=== PATIENT | female | born 1985 | race Caucasian/White ===

== ENCOUNTER 2016-09-01 10:09 | Emergency (ER) | payer OTHER ==
--- NOTE | 2016-09-01 10:33 | ED ---
Abdominal Pain HPI - General Chief Complaint: Abdominal Pain Stated Complaint: AND CRAMPING Time Seen by Provider: 09/01/16 10:17 Source: patient Mode of arrival: ambulatory Limitations: no limitations - History of Present Illness Initial Comments: This 30-year-old white female presents with a complaint of some right lower quadrant abdominal pain. She relates that this came on yesterday. She took a home test approximately one week ago and it was positive. She is unsure how she would be as she has had very irregular periods. She has had some associated nausea recently but she normally gets this when she is . She does not take any medications for this. She denies any vomiting , fever, chills, diarrhea, or constipation. She's had some mild urinary frequency but denies any dysuria or urgency or hematuria. She does have a history of a cholecystectomy but states that her appendix is still present. She also has a history of previous ectopic treated with methotrexate. She has a history of significant ovarian cysts and states that one was very large this past year and cause detorsion for which she required emergent surgery. She denies any other complaints or modifying factors. She denies any vaginal bleeding or discharge. - Related Data Home Medications Medication Instructions Recorded Confirmed Pnv with Ca,No.72/Iron/FA 1 tab PO HS 09/01/16 09/01/16 [ Plus Tablet] Allergies Allergy/AdvReac Type Severity Reaction Status Date / Time metoclopramide HCl Allergy Confusion Verified 09/01/16 11:26 [From [facility]] Review of Systems ROS Statement: Those systems with pertinent positive or pertinent negative responses have been documented in the HPI. ROS Other: All systems not noted in ROS Statement are negative. Past Medical History Additional Past Medical History / Comment(s): OB history: 4 previous vaginal deliveries and one ectopic treated with methotrexate. History of Any Multi-Drug Resistant Organisms: None Reported Past Surgical History: Cholecystectomy Past Anesthesia/Blood Transfusion Reactions: No Reported Reaction Past Psychological History: Anxiety Smoking Status: Current every day smoker Past Alcohol Use History: None Reported Past Drug Use History: None Reported - Past Family History Father Family Medical History: No Reported History Additional Family Medical History / Comment(s): grandmother diabetic General Exam - General Exam Comments Initial Comments: GENERAL: The patient is well nourished and well hydrated. VITAL SIGNS: Heart rate, blood pressure, respiratory rate reviewed as recorded in nurse's notes. EYES: Pupils are round and reactive. Extraocular movements are intact. No conjunctival / lid redness or swelling. ENT: No external evidence of injury, swelling, or ecchymosis. Airway is patent. Throat is clear. NECK: Nontender. No swelling or evidence of injury. No subcutaneous emphysema. Trachea is midline. No thyroid mass. HEART: Regular rate and rhythm. Good peripheral pulses. LUNGS/CHEST: Breath sounds clear and equal bilaterally. No rales, rhonchi, or wheezes. No ecchymosis, subcutaneous emphysema, or tenderness. ABDOMEN: There is mild tenderness upon palpation of the right lower quadrant. There is no peritoneal signs. No palpable masses or organomegaly. No peritoneal signs. No abdominal wall swelling or ecchymosis. EXTREMITIES: No extremity tenderness. Normal muscle tone and function. No thoracolumbar tenderness. NEUROLOGIC: Sensation is grossly intact. Cranial nerve exam reveals face is symmetrical, tongue is midline, speech is clear. SKIN: No abrasions or ecchymosis is noted. No induration or masses noted. PSYCHIATRIC: Alert and oriented. Appropriate behavior and judgment. Limitations: no limitations Course Vital Signs 09/01/16 10:10 Temperature 98.5 F Pulse Rate 91 Respiratory 17 Rate Blood Pressure 137/81 O2 Sat by Pulse 100 Oximetry Medical Decision Making - Medical Decision Making The patient was seen and examined. All diagnostics were reviewed. The ultrasound showed a 15 week 1 day intrauterine . There are multiple bilateral ovarian cyst. The largest one on the right side is 2.5 cm in the largest one on the left side is 7 cm. She does relate a significant history of ovarian cysts. She apparently had a 13 cm cyst on the left side previously. She has not had any care thus far. She is in the process of moving to the [facility] and was thinking of establishing with an OB in that area but may stay with her current OB, Dr. Younger. It is not felt as though she has appendicitis but return parameters are discussed in this regard. It is felt that she should have close follow-up with her CHERRY PITTER for both care and further evaluation of this significant left sided ovarian cyst, especially in light of her history of torsion. Her urine and CBC came back normal. It is felt as though she is stable for discharge and leaves in no identifiable distress. She is instructed that she may utilize Tylenol if needed for pain. - Lab Data Result diagrams: 09/01/16 10:37 Lab Results 09/01/16 09/01/16 Range/Units 10:15 10:37 WBC 9.4 (3.8-10.6) k/uL RBC 4.14 (3.80-5.40) m/uL Hgb 12.8 (11.4-16.0) gm/dL Hct 38.6 (34.0-46.0) % MCV 93.3 (80.0-100.0) fL MCH 31.0 (25.0-35.0) pg MCHC 33.2 (31.0-37.0) g/dL RDW 14.2 (11.5-15.5) % Plt Count 226 (150-450) k/uL Neutrophils % 72 % Lymphocytes % 21 % Monocytes % 4 % Eosinophils % 2 % Basophils % 1 % Neutrophils # 6.8 (1.3-7.7) k/uL Lymphocytes # 1.9 (1.0-4.8) k/uL Monocytes # 0.4 (0-1.0) k/uL Eosinophils # 0.2 (0-0.7) k/uL Basophils # 0.0 (0-0.2) k/uL Urine Color Yellow Urine Appearance Clear (Clear) Urine pH 8.0 (5.0-8.0) Ur Specific [place] 1.009 (1.001-1.035) Urine Protein Negative (Negative) Urine Glucose (UA) Negative (Negative) Urine Ketones Negative (Negative) Urine Blood Negative (Negative) Urine Nitrite Negative (Negative) Urine Bilirubin Negative (Negative) Urine Urobilinogen <2.0 (<2.0) mg/dL Ur Leukocyte Esterase Negative (Negative) Disposition Clinical Impression: Pelvic pain, Ovarian cyst, Intrauterine Disposition: HOME SELF-CARE Condition: Good Instructions: (ED), Pelvic Pain in Women (ED), Ovarian Cyst (ED) Referrals: None,Stated [Primary Care Provider] - 1-2 days Marquis Britt DO [Doctor of Osteopathic Medicine] - 09/03/16 Time of Disposition: 12:01
[2016-09-01 10:47] LABS: Basophils % (A) 1 %; CH 31.4; CHCM 33.9; Eosinophils # (A) 0.2 k/uL (0-0.7); Eosinophils % (A) 2 %; HCT 38.6 % (34.0-46.0); HDW 2.27; HGB 12.8 gm/dL (11.4-16.0); Luc % (Auto) 1; Lymphocytes # (A) 1.9 k/uL (1.0-4.8); Lymphocytes % (A) 21 %; MCHC 33.2 g/dL (31.0-37.0); MCV 93.3 fL (80.0-100.0); Monocytes # (A) 0.4 k/uL (0-1.0); Monocytes % (A) 4 %; Neutrophils # (A) 6.8 k/uL (1.3-7.7); Neutrophils % (A) 72 %; RBC 4.14 m/uL (3.80-5.40); RDW 14.2 % (11.5-15.5); WBC 9.4 k/uL (3.8-10.6); WBC (Perox) 9.92
[2016-09-01 10:47] LABS: Appearance,Urine Clear (Clear); Bilirubin,Urine Negative (Negative); Glucose,Urine (UA) Negative (Negative); Ketones,Urine Negative (Negative); Leukocyte Esterase,Urine Negative (Negative); Nitrite,Urine Negative (Negative); Protein,Urine Negative (Negative); Specific Gravity,Urine 1.009 (1.001-1.035); UA Billing (MACRO vs. MICRO) CHEM; Urobilinogen,Urine <2.0 mg/dL (<2.0)
--- NOTE | 2016-09-01 11:34 | US ---
EXAMINATION TYPE: US OB >= 14 wk fetus DATE OF EXAM: 09/01/2016 11:09 AM COMPARISON: No previous CLINICAL HISTORY: Right pelvic pain, history of ovarian cysts, LMP unknown, 6, para 4, ectopi c 1 TECHNIQUE: Transabdominal (TA) GESTATIONAL AGE / DATING Physician Established: Not established yet Dates by LMP: Unknown Dates by First Scan: This is 1st scan Dates by Current Scan: (15 weeks/1 days) EDC: 02/22/2017 SURVEY IUP: Single PLACENTA: Anterior PREVIA: Marginal DONNA: 10.5 cm Normal CERVICAL LENGTH (transabdominal: norm > 3.0cm): 3.6 cm BIOMETRY PRESENTATION: Vertex BPD: 2.9 cm 15 weeks / 1 days HC: 10.7 cm 15 weeks / 1 days AC: 8.4 cm 14 weeks / 5 days FL: 1.5 cm 14 weeks / 4 days ESTIMATED WEIGHT IN GRAMS: 104.3 grams ESTIMATED WEIGHT IN LBS/OZS: 0 lbs. 4 oz. WEIGHT PERCENTAGE BASED ON ESTABLISHED DATES: n/a HC/AC: 1.27 Normal FL/AC: 18.26 HEART RATE: 155 bpm RHYTHM: Normal Viable single IUP measuring 15 weeks 1 day with a heart rate of 155bpm and an estimated delivery date of 02/22/2017. Scanned right adnexa area of pain: right ovary: multiple cystic areas with largest measuring 2.5cm, left ovary for comparison: multiple cystic areas with largest measuring 7.0cm, hypoechoic area with peripheral vascularity measuring 2.0cm Grayscale, color Doppler imaging performed. Color flow is noted to the ovaries. IMPRESSION: Single viable intrauterine corresponding to ultrasound age 15 weeks 1 day with estimated da te of delivery 22 February 2017 by today's exam.
[2016-09-01 12:20] VITALS: BP 118/81; PULSE 86; RESP 18; TEMP 98.3
== END 2016-09-01 12:20 | disposition home or self-care (01) ==
LOC: EC 10:09
DX: O34.82 Maternal care for other abnormalities of pelvic organs, second trimester (principal); N83.201 Unspecified ovarian cyst, right side; N83.202 Unspecified ovarian cyst, left side; O99.332 Smoking (tobacco) complicating pregnancy, second trimester; F17.200 Nicotine dependence, unspecified, uncomplicated; Z90.49 Acquired absence of other specified parts of digestive tract; Z3A.15 15 weeks gestation of pregnancy; Z88.8 Allergy status to other drugs, medicaments and biological substances; Z79.899 Other long term (current) drug therapy
CPT/HCPCS: 36415; 76805; 81003; 84702; 85025; 99284

== ENCOUNTER 2016-12-27 07:53 | Emergency (ER) | payer OTHER ==
[2016-12-27 07:59] VITALS: BP 125/65; PULSE 101; TEMP 98.2
[2016-12-27 08:14] VITALS: RESP 20
--- NOTE | 2016-12-27 08:23 | ED ---
General Adult HPI - General Chief complaint: Upper Respiratory Infection Stated complaint: SINUS INFECTION X 2 WEEKS, COUGH Time Seen by Provider: 12/27/16 08:12 Source: patient, RN notes reviewed Mode of arrival: ambulatory Limitations: no limitations - History of Present Illness Initial comments: Patient 31-year-old female who is approximately 33 weeks by ultrasound , who presents emergency room today with chief complaint of increased cough congestion and rhinorrhea over the last 2 weeks. She does admit that she's had positive sputum production as been green in color. She admits that she's also had green rhinorrhea but also clear and white at times. Patient does admit that she began experiencing some right-sided lower rib pain yesterday. She states it's worse when she coughs or sneezes. Patient denies any other complaints associated symptoms. Patient denies any recent fever, chills, shortness of breath, chest pain, back pain, abdominal pain, nausea or vomiting, numbness or tingling, dysuria or hematuria, constipation or diarrhea, headaches or visual changes, or any other complaints. - Related Data Home Medications Medication Instructions Recorded Confirmed Pedi Multivit No.25/Folic Acid 300 mcg PO DAILY 12/27/16 12/27/16 [Flintstones Multivit Chew Tab] Previous Rx's Medication Instructions Recorded Azithromycin [Zithromax Z-pack] 0 mg PO DIRECTED #6 tab 12/27/16 Allergies Allergy/AdvReac Type Severity Reaction Status Date / Time metoclopramide HCl Allergy Confusion Verified 12/27/16 08:04 [From [facility]] Review of Systems ROS Statement: Those systems with pertinent positive or pertinent negative responses have been documented in the HPI. ROS Other: All systems not noted in ROS Statement are negative. Past Medical History Additional Past Medical History / Comment(s): OB history: 4 previous vaginal deliveries and one ectopic treated with methotrexate. ovarian cyst History of Any Multi-Drug Resistant Organisms: None Reported Past Surgical History: Cholecystectomy Past Anesthesia/Blood Transfusion Reactions: No Reported Reaction Past Psychological History: Anxiety Smoking Status: Current every day smoker Past Alcohol Use History: None Reported Past Drug Use History: None Reported - Past Family History Father Family Medical History: No Reported History Additional Family Medical History / Comment(s): grandmother diabetic General Exam - General Exam Comments Initial Comments: General: The patient is awake and alert, in no distress, and does not appear acutely ill. Eye: Pupils are equal, round and reactive to light, extra-ocular movements are intact. No nystagmus. There is normal conjunctiva bilaterally. No signs of icterus. Ears, nose, mouth and throat: There are moist mucous membranes and no oral lesions. No tenderness over the maxillary or frontal sinuses. Neck: The neck is supple, there is no tenderness or JVD. Cardiovascular: There is a regular rate and rhythm. No murmur, rub or gallop is appreciated. Respiratory: Lungs are clear to auscultation, respirations are non-labored, breath sounds are equal. No wheezes, stridor, rales, or rhonchi. Musculoskeletal: Normal ROM, no tenderness. Strength 5/5. Sensation intact. Pulses equal bilaterally 2+. Neurological: A&O x 3. CN II-XII intact, There are no obvious motor or sensory deficits. Coordination appears grossly intact. Speech is normal. Skin: Skin is warm and dry and no rashes or lesions are noted. Psychiatric: Cooperative, appropriate mood & affect, normal judgment. Limitations: no limitations Course Vital Signs 12/27/16 12/27/16 07:56 08:12 Temperature 98.2 F Pulse Rate 101 H Respiratory 17 20 Rate Blood Pressure 125/65 O2 Sat by Pulse 100 Oximetry Medical Decision Making - Medical Decision Making Case discussed in detail with attending physician Dr. Arenas. Patient's vital stable here in the emergency room pulse ox 100%. Patient's pain reproducible on palpation to the right side lower ribs. This reproduces her pain. It is worse when she coughs sneezes. She has had increased cough congestion last 2 weeks to positive sputum and rhinorrhea. She states to drink color. Options were discussed about chest x-ray here in the emergency room. Patient is 33 weeks . Did discuss with patient most likely would treat with an antibiotic to cover for a bronchitis infection as is been greater than 2 weeks. At this time we will hold on x-ray and treat with azithromycin. Advised close follow-up over the next 2 days with both her family doctor or [employer]. Advised to return to emergency room if any symptoms increase or worsen or for any other concerns. Disposition Clinical Impression: Acute bronchitis Disposition: HOME SELF-CARE Condition: Good Instructions: Acute Bronchitis (ED) Additional Instructions: Please use medication as discussed. Please follow-up with [employer]NA[employer]/family doctor in the next 2 days of symptoms have not improved. Please return to emergency room if the symptoms increase or worsen or for any other concerns. Prescriptions: Azithromycin [Zithromax Z-pack] 0 mg PO DIRECTED #6 tab Referrals: None,Stated [Primary Care Provider] - 1-2 days Jenna Parikh MD [REFERRING] - 1-2 days Time of Disposition: 08:22
== END 2016-12-27 08:33 | disposition home or self-care (01) ==
LOC: EC 07:53
DX: O99.513 Diseases of the respiratory system complicating pregnancy, third trimester (principal); J20.9 Acute bronchitis, unspecified; O99.333 Smoking (tobacco) complicating pregnancy, third trimester; F17.200 Nicotine dependence, unspecified, uncomplicated; Z3A.33 33 weeks gestation of pregnancy; Z88.8 Allergy status to other drugs, medicaments and biological substances; Z79.899 Other long term (current) drug therapy
CPT/HCPCS: 99283

== ENCOUNTER 2017-02-14 21:52 | Inpatient (IN) | payer OTHER ==
[2017-02-14] MEDS ORDERED: TERBUTALINE 1 MG/ML VIAL SQ PRN (22:16)
[2017-02-14] MEDS ORDERED: PENICILLIN G POTASSIUM (BULK) 5,000,000 UNIT in DEXTROSE 5% IN WATER 100 ML IV STA ×2 (22:16)
[2017-02-14] MEDS ORDERED: LIDOCAINE 1% (PF) 10 MG/ML (30 ML SDV) SQ PRN (22:16)
[2017-02-14] MEDS ORDERED: CARBOPROST TROMETHAMINE 250 MCG/ML 1 ML AMP IM PRN (22:16)
[2017-02-14] MEDS ORDERED: METHYLERGONOVINE 0.2 MG/ML 1 ML AMP IM PRN (22:16)
[2017-02-14] MEDS ORDERED: OXYTOCIN 10 UNIT/ML 1 ML VIAL IM PRN (22:16)
[2017-02-14 22:24] LABS: Basophils % (A) 0 %; CH 29.7; CHCM 33.2; Eosinophils # (A) 0.2 k/uL (0-0.7); Eosinophils % (A) 1 %; HCT 35.3 % (34.0-46.0); HDW 2.89; HGB 11.5 gm/dL (11.4-16.0); Luc # (Auto) 0.19; Luc % (Auto) 2; Lymphocytes # (A) 2.6 k/uL (1.0-4.8); Lymphocytes % (A) 23 %; MCH 29.4 pg (25.0-35.0); MCHC 32.7 g/dL (31.0-37.0); Mean Platelet Volume 9.2; Monocytes # (A) 0.7 k/uL (0-1.0); Monocytes % (A) 6 %; Neutrophils # (A) 7.9 k/uL (1.3-7.7); Neutrophils % (A) 68 %; RBC 3.92 m/uL (3.80-5.40); RDW 14.9 % (11.5-15.5); WBC 11.6 k/uL (3.8-10.6); WBC (Perox) 12.35
[2017-02-14] MEDS ORDERED: OXYTOCIN 20 UNITS/1000 ML NS 1,000 ML IV SCH (22:30)
[2017-02-14 22:41] VITALS: BMI 28.5
[2017-02-14] MEDS ORDERED: BUPIVACAINE (PF) 0.25% 30 ML VIAL ONE (22:54)
[2017-02-14] MEDS ORDERED: SODIUM CHLORIDE 0.9% 100 ML BAG ONE (22:54)
[2017-02-14] MEDS ORDERED: fentaNYL (PF) 50 MCG/ML 5 ML AMP ONE (22:54)
[2017-02-14] MEDS: LACTATED RINGERS 1,000 ML IV SCH (23:26)
[2017-02-15 00:16] LABS: Appearance,Urine Clear (Clear); Bilirubin,Urine Negative (Negative); Glucose,Urine (UA) Negative (Negative); Ketones,Urine Negative (Negative); Leukocyte Esterase,Urine Negative (Negative); Mucus,Urine Occasional /hpf; Nitrite,Urine Negative (Negative); PH, Urine 6.5 (5.0-8.0); Particle Count 6241; Protein,Urine 1+ (Negative); RBC,Urine 6 /hpf (0-5); Specific Gravity,Urine 1.023 (1.001-1.035); Squamous Epithelial Cell,Urine 5 /hpf (0-4); UA Billing (MACRO vs. MICRO) MICRO; Urobilinogen,Urine <2.0 mg/dL (<2.0); WBC,Urine 3 /hpf (0-5)
[2017-02-15] MEDS: LACTATED RINGERS 1,000 ML IV SCH (01:13)
--- NOTE | 2017-02-15 01:17 | P.HPOB ---
History of Present Illness H&P Date: 02/15/17 Chief Complaint: Labor at 38-6/7 weeks' This is a 31-year-old 6 para 4014 woman who is 38-6/7 weeks' . Estimated due date of 02/22/2017. She presents with spontaneous rupture of membranes and regular painful uterine contractions. She is received her obstetrical care with a transport aide in [facility]. has been complicated by large bilateral ovarian cysts. She was a planned induction of labor for tomorrow. She reports on the spontaneous rupture of membranes and that the fluid is brown tinged. This occurred at approximately 2100. She had strong onset of regular contractions at that time. She denies vaginal bleeding. Obstetrical history is significant for 4 previous term normal spontaneous vaginal deliveries. She reports having ovarian cyst and all of them. record that she has with her shows blood type O+, antibody screen negative, rubella immune, VDRL negative, HIV negative, hepatitis B surface antigen negative, gonorrhea and clinic cultures negative, glucose tolerance testing negative, group B strep negative. Upon initial evaluation in labor and delivery triage rupture of membranes is confirmed with moderate meconium-stained fluid. She was 5 cm dilated and actively laboring. Review of Systems All systems: negative Past Medical History Additional Past Medical History / Comment(s): OB history: 4 previous vaginal deliveries and one ectopic treated with methotrexate. ovarian cyst History of Any Multi-Drug Resistant Organisms: None Reported Past Surgical History: Cholecystectomy Past Anesthesia/Blood Transfusion Reactions: No Reported Reaction Past Psychological History: Anxiety Smoking Status: Current every day smoker Past Alcohol Use History: None Reported Past Drug Use History: None Reported - Past Family History Father Family Medical History: No Reported History Additional Family Medical History / Comment(s): grandmother diabetic Medications and Allergies Home Medications Medication Instructions Recorded Confirmed Type Pedi Multivit No.25/Folic Acid 300 mcg PO DAILY 12/27/16 02/14/17 History [Flintstones Multivit Chew Tab] Allergies Allergy/AdvReac Type Severity Reaction Status Date / Time metoclopramide HCl Allergy Confusion Verified 02/14/17 22:15 [From [facility]] Exam - Vital Signs Vital signs: Vital Signs Temp Resp 02/14/17 22:44 18 02/14/17 22:14 97.1 F L Intake and Output 02/14/17 02/14/17 02/15/17 14:59 22:59 06:59 Other: Weight 70.76 kg Patient Weight 02/15/17 06:59 Weight 70.76 kg Upon my initial evaluation patient is on stating she has the urge to push. On pelvic examination the cervix is completely dilated the vertex at the +1 station. Dark meconium-stained fluid is noted. heart tones are overall reassuring with some early timed heart rate decelerations. She is luis every 3 minutes. Results Result Diagrams: 02/14/17 22:10 Abnormal Lab Results - Last 24 Hours (Table) 02/14/17 02/14/17 Range/Units 22:10 23:50 WBC 11.6 H (3.8-10.6) k/uL Neutrophils # 7.9 H (1.3-7.7) k/uL Urine Protein 1+ H (Negative) Urine Blood Trace H (Negative) Urine RBC 6 H (0-5) /hpf Ur Squamous Epith Cells 5 H (0-4) /hpf Urine Mucus Occasional H (None) /hpf Assessment and Plan (1) Spontaneous onset of labor Status: Acute (2) Spontaneous rupture of membranes Status: Acute (3) Meconium in amniotic fluid Status: Acute (4) Ovarian cyst during Status: Acute Plan: 31-year-old 6 para 4 woman presenting at 38-6/7 weeks gestation in spontaneous active labor with rupture of membranes. Meconium-stained fluid. She has received an epidural anesthetic. Anticipate normal spontaneous vaginal delivery.
[2017-02-15] MEDS ORDERED: WITCH HAZEL 1 EACH MED..PAD TOPICAL PRN (01:20)
[2017-02-15] MEDS ORDERED: SIMETHICONE 80 MG CHEWABLE PO PRN (01:20)
[2017-02-15] MEDS ORDERED: HYDROCORTISONE 2.5% RECTAL CREAM 30 GM TUBE RECTAL PRN (01:20)
[2017-02-15] MEDS ORDERED: LANOLIN CREAM 5 GM TUBE TOPICAL PRN (01:20)
[2017-02-15] MEDS ORDERED: ZOLPIDEM 5 MG TAB PO PRN (01:20)
[2017-02-15] MEDS ORDERED: diphenhydrAMINE 25 MG CAP PO PRN (01:20)
[2017-02-15] MEDS ORDERED: ACETAMINOPHEN TAB 325 MG TAB PO PRN (01:20)
[2017-02-15] MEDS ORDERED: diphenhydrAMINE 50 MG/ML 1 ML VIAL IVP PRN ×2 (01:20)
[2017-02-15] MEDS ORDERED: BENZOCAINE/MENTHOL SPRAY 1 GM/SPRAY AEROSOL TOPICAL PRN (01:20)
[2017-02-15] MEDS ORDERED: diphenhydrAMINE 50 MG CAP PO PRN (01:20)
--- NOTE | 2017-02-15 01:20 | P.PROBDLV ---
Vaginal Delivery Note - . Vaginal Delivery Note: Findings: Male infant in the vertex occiput anterior position with nuchal cord 2 and true knot in the cord. Thick meconium-stained fluid. Apgars of 8 at 1 minute and 9 at 5 minutes weighing 8 lbs. 0 oz., 3635 g. Intact perineum. EBL approximately 150 mL's. Intact, three-vessel cord placenta with meconium- stained membranes. Delivery summary: This is a 31-year-old 6 para 4014 woman who presented in spontaneous active labor at 38-6/7 weeks' gestation. She received her care at an [facility] facility. She reports history of large ovarian cysts, Sandy . Following admission she was 5 cm dilated and regularly luis. Rupture of membranes was confirmed with meconium. She received an epidural anesthetic. She went on to be completely dilated with strong urge to push. At that point she was repositioned, prepped and draped in the dorsal modified lithotomy position. With additional maternal effort 3 the head did deliver from the direct occiput anterior position. The nose and mouth were bulb suctioned on the perineum. There is a very tight double nuchal cord noted with true knot in the cord about the neck. This was delivered through as it could not be easily reduced. The infant was delivered onto the field and the nose and mouth were further bulb suctioned. Infant was placed on the maternal abdomen and the cord was clamped and cut. Apgars were 8 at 1 minute and 9 at 5 minutes. An intact, three-vessel cord placenta was delivered after an approximately 7 minute third stage of labor. The uterus was massaged and was noted to be firm below the level of the umbilicus. The perineum was inspected and no lacerations were noted. Both mother and infant were doing well post delivery in the room. All counts were correct.
[2017-02-15] MEDS ORDERED: OXYTOCIN 20 UNITS/1000 ML NS 1,000 ML IV SCH (01:30)
[2017-02-15] MEDS ORDERED: PENICILLIN G POTASSIUM (BULK) 2,500,000 UNIT in DEXTROSE 5% IN WATER 100 ML IV SCH ×2 (02:17)
[2017-02-15 07:54] VITALS: RESP 16
--- NOTE | 2017-02-15 09:32 | P.PNOBGVD ---
Subjective - Subjective Principal diagnosis: day #1 Patient reports: Reports appetite normal, Reports voiding normally, Reports pain well controlled, Reports ambulating normally : doing well Objective - Latest Vital Signs Latest vital signs: Vital Signs Temp Pulse Resp BP Pulse Ox 02/15/17 07:52 98.4 F 60 16 109/42 02/15/17 03:16 97.5 F L 71 18 91/54 97 02/15/17 02:46 97.9 F 73 18 96/51 02/15/17 02:09 97.8 F 88 18 112/57 02/15/17 02:01 98.0 F 88 18 112/57 02/15/17 01:44 97.9 F 93 18 112/57 02/15/17 01:31 97.5 F L 93 18 112/57 02/15/17 01:16 97.9 F 101 H 18 119/57 97 02/14/17 22:44 18 02/14/17 22:16 97.3 F L 120 H 18 140/70 02/14/17 22:14 97.1 F L Intake and Output 02/14/17 02/15/17 02/15/17 22:59 06:59 14:59 Other: # Voids 1 Weight 70.76 kg - Exam Extremities: Present: normal Abdomen: Present: normal appearance, soft Uterus: Present: normal, firm - Labs Labs: Abnormal Lab Results - Last 24 Hours (Table) 02/14/17 02/14/17 Range/Units 22:10 23:50 WBC 11.6 H (3.8-10.6) k/uL Neutrophils # 7.9 H (1.3-7.7) k/uL Urine Protein 1+ H (Negative) Urine Blood Trace H (Negative) Urine RBC 6 H (0-5) /hpf Ur Squamous Epith Cells 5 H (0-4) /hpf Urine Mucus Occasional H (None) /hpf Assessment and Plan (1) Spontaneous onset of labor Current Visit: Yes Status: Acute Code(s): ENU3277 - SNOMED Code(s): 79407738 (2) Spontaneous rupture of membranes Current Visit: Yes Status: Acute Code(s): AEU1196 - SNOMED Code(s): 774247055 (3) Meconium in amniotic fluid Current Visit: Yes Status: Acute Code(s): P96.83 - MECONIUM STAINING SNOMED Code(s): 5939666 (4) Ovarian cyst during Current Visit: Yes Status: Acute Code(s): O34.80 - MATERNAL CARE FOR OTH ABNLT OF PELVIC ORGANS, UNSP TRIMESTER; N83.209 - UNSPECIFIED OVARIAN CYST, UNSPECIFIED SIDE SNOMED Code(s): 68115567 (5) Nuchal cord Current Visit: Yes Status: Acute Code(s): O69.82X0 - LABOR AND DEL COMP BY OTH CORD ENTANGLE, W/O COMPRSN, UNSP SNOMED Code(s): 218440434 (6) Normal spontaneous vaginal delivery Narrative/Plan: day #1 status post normal spontaneous vaginal delivery. media services specialist involved in disposition of the . Probable D/C home tomorrow. Current Visit: Yes Status: Acute Code(s): O80 - ENCOUNTER FOR FULL-TERM UNCOMPLICATED DELIVERY SNOMED Code(s): 58491055 (7) True knot in umbilical cord Current Visit: Yes Status: Acute Code(s): O69.2XX0 - LABOR AND DEL COMP BY OTH CORD ENTANGLE, W COMPRSN, UNSP SNOMED Code(s): 73342516
[2017-02-15] MEDS: IBUPROFEN 600 MG TAB PO PRN ×2 (11:12→20:29)
[2017-02-15] MEDS: SENNOSIDES-DOCUSATE SODIUM 1 EACH TAB PO SCH ×2 (20:29→20:31)
--- NOTE | 2017-02-16 06:54 | P.PNOBGVD ---
Subjective - Subjective Principal diagnosis: day #1 normal spontaneous vaginal delivery Interval history: This is a very pleasant 31-year-old 6 para 5015, day #2. She is ambulating and voiding without difficulty. She is tolerating a regular diet without nausea or vomiting. She is breast-feeding without difficulty She states her lochia is minimal at this point. She would like to be discharged home today. Patient reports: Reports appetite normal, Reports voiding normally, Reports pain well controlled, Reports ambulating normally [place]: doing well (At the bedside with mom) Objective - Latest Vital Signs Latest vital signs: Vital Signs Temp Pulse Resp BP Pulse Ox 02/16/17 04:00 98.2 F 67 16 113/62 02/16/17 00:00 98.9 F 78 16 128/71 02/15/17 19:57 16 02/15/17 19:49 98.5 F 86 16 117/74 97 02/15/17 14:45 99 16 132/81 02/15/17 07:52 98.4 F 60 16 109/42 Intake and Output 02/15/17 02/15/17 02/16/17 14:59 22:59 06:59 Other: Voiding Method Toilet # Voids 1 - Exam Abdomen: Present: normal appearance Uterus: Present: firm - Labs Labs: Abnormal Lab Results - Last 24 Hours (Table) 02/14/17 02/15/17 Range/Units 23:50 09:40 U Cannabinoids Screen Positive H (Negative) ng/mL U Marijuana (THC) Screen Detected H (NotDetected) Assessment and Plan (1) Meconium in amniotic fluid Current Visit: Yes Status: Acute Code(s): P96.83 - MECONIUM STAINING SNOMED Code(s): 0534488 (2) Normal spontaneous vaginal delivery Narrative/Plan: Ezekiel is doing well on day #1 and wishes discharge home. She is going to follow up with her HTML WEB DEVELOPER at [facility]. She is using Motrin for pain control and will continue this after discharge. Current Visit: Yes Status: Acute Code(s): O80 - ENCOUNTER FOR FULL-TERM UNCOMPLICATED DELIVERY SNOMED Code(s): 05474935
--- NOTE | 2017-02-16 06:59 | P.DS ---
Providers Date of admission: 02/14/17 22:06 Expected date of discharge: 02/16/17 Attending physician: Griselda Gonzalez Primary care physician: Stated None - Discharge Diagnosis(es) (1) Meconium in amniotic fluid Current Visit: Yes Status: Acute (2) Normal spontaneous vaginal delivery This is a very pleasant 31-year-old 6 para [id number] that presented to labor and delivery on 92 with complaints of contractions. 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 Her was complicated by ovarian cysts otherwise okay. She states she had spontaneous rupture of membranes brown tinged in nature approximately 2100. She then began luis regular in nature and presented to the hospital. He does have a prior history of 4 term spontaneous vaginal deliveries. Her blood type was O+ rubella immune, RPR negative, HIV negative, hepatitis B surface antigen, negative gonorrhea and chlamydia cultures, negative GTT testing negative, group beta strep negative. Upon initial exam in triage she was 5 cm dilated and grossly ruptured with meconium-stained fluid. she was admitted to labor and delivery and progressed through labor to complete, and had a normal spontaneous vaginal delivery of a viable male . No vaginal or perineal lacerations were noted. Her course was benign and on day #1 she wished to be discharged home. She is ambulating and voiding without difficulty, she is tolerating a regular diet without nausea or vomiting. She is breast-feeding without difficulty. Her lochia she states is minimal Current Visit: Yes Status: Acute Plan - Discharge Summary New Discharge Prescriptions: No Action Pedi Multivit No.25/Folic Acid [[place] Multivit Chew Tab] 300 mcg PO DAILY Discharge Medication List Pedi Multivit No.25/Folic Acid [[place]stones Multivit Chew Tab] 300 mcg PO DAILY 12/27/16 [History] Patient Instructions/Handouts: Vaginal Delivery (DC) Discharge Disposition: HOME SELF-CARE
[2017-02-16] MEDS: SENNOSIDES-DOCUSATE SODIUM 1 EACH TAB PO SCH (08:05)
[2017-02-16 08:09] VITALS: BP 117/77; PULSE 70; TEMP 97.9
== END 2017-02-16 13:45 | disposition home or self-care (01) | DRG 775 ==
LOC: FBPOP 21:52 → 4FBP 22:06
PROVIDERS: ADMIT Obstetrics & Gynecology; ATTEND Obstetrics & Gynecology
PROC: 00HU33Z Insertion of Infusion Device into Spinal Canal, Percutaneous Approach (ICD-10-PCS; 2017-02-14)
PROC: 3E0R3CZ (ICD-10-PCS; 2017-02-14)
PROC: 10E0XZZ Delivery of Products of Conception, External Approach (ICD-10-PCS; principal; 2017-02-15)
DX: O77.0 Labor and delivery complicated by meconium in amniotic fluid (principal); F17.200 Nicotine dependence, unspecified, uncomplicated; O69.1XX0 Labor and delivery complicated by cord around neck, with compression, not applicable or unspecified; O69.2XX0 Labor and delivery complicated by other cord entanglement, with compression, not applicable or unspecified; O99.334 Smoking (tobacco) complicating childbirth; O34.83 Maternal care for other abnormalities of pelvic organs, third trimester; Z37.0 Single live birth; Z3A.38 38 weeks gestation of pregnancy; N83.201 Unspecified ovarian cyst, right side; N83.202 Unspecified ovarian cyst, left side; Z79.899 Other long term (current) drug therapy; Z86.59 Personal history of other mental and behavioral disorders; Z88.8 Allergy status to other drugs, medicaments and biological substances
CPT/HCPCS: 80306; 81001; 85025; 88307

== ENCOUNTER 2018-12-17 16:19 | Inpatient (IN) | payer OTHER ==
[2018-12-17] MEDS ORDERED: SODIUM CHLORIDE 0.9% 500 ML 500 ML IV STA (16:41)
[2018-12-17] MEDS ORDERED: HYDROmorphone 1 MG/ML 1 ML SYRINGE IVP STA (16:41)
--- NOTE | 2018-12-17 17:03 | ED ---
Abdominal Pain HPI - General Source: EMS Mode of arrival: EMS Limitations: no limitations <Tere Pineda - Last Filed: 12/17/18 19:58> <Asif Stanlye - Last Filed: 12/17/18 20:43> - General Chief Complaint: Abdominal Pain Stated Complaint: Ovarian cyst Time Seen by Provider: 12/17/18 16:32 - History of Present Illness Initial Comments: Patient is a 33-year-old female presenting to the emergency department via transfer from [facility], with complaints of acute onset of lower left abdominal pain for the last couple hours. Patient is 6 weeks , spontaneous vaginal delivery. Patient states she has recent history of a large right ovarian cyst with her recent . Patient has history of right ovarian cystectomy emergently. Patient states this feels like the same kind of pain. Patient denies fever, chills, nausea, vomiting, urinary symptoms, vaginal bleeding. Upon arrival patient is crying in pain. Patient had lab work and ultrasound at [facility] prior to arrival which shows several large left ovarian cysts with the largest measuring 13.5 cm. There is no ultrasound findings to urgent. Patient's CBC, BMP, UA were within normal limits. (Tere Pineda) - Related Data Home Medications Medication Instructions Recorded Confirmed Acetaminophen Tab [Tylenol] 1,000 mg PO Q8HR PRN 12/17/18 12/17/18 Allergies Allergy/AdvReac Type Severity Reaction Status Date / Time metoclopramide HCl Allergy Confusion Verified 12/17/18 16:33 [From [facility]] Review of Systems ROS Other: All systems not noted in ROS Statement are negative. <Tere Pineda - Last Filed: 12/17/18 19:58> ROS Other: All systems not noted in ROS Statement are negative. <Asif Stanley - Last Filed: 12/17/18 20:43> ROS Statement: Those systems with pertinent positive or pertinent negative responses have been documented in the HPI. Past Medical History Additional Past Medical History / Comment(s): OB history: 5 previous vaginal deliveries and one ectopic treated with methotrexate. ovarian cyst History of Any Multi-Drug Resistant Organisms: None Reported Past Surgical History: Cholecystectomy Additional Past Surgical History / Comment(s): laparoscopic drainage of bilateral ovarian cysts and reversal of ovarian torsion 2016 Past Anesthesia/Blood Transfusion Reactions: No Reported Reaction Past Psychological History: Anxiety Smoking Status: Current every day smoker Past Alcohol Use History: None Reported Past Drug Use History: None Reported - Past Family History Father Family Medical History: No Reported History Additional Family Medical History / Comment(s): grandmother diabetic <Tere Pineda - Last Filed: 12/17/18 19:58> General Exam Limitations: no limitations <Tere Pineda - Last Filed: 12/17/18 19:58> - General Exam Comments Initial Comments: GENERAL: Well-appearing, well-nourished, in moderate amount of distress. HEAD: Atraumatic, normocephalic. EYES: Pupils equal round and reactive to light, extraocular movements intact, sclera anicteric, conjunctiva are normal. ENT: TMs normal, nares patent, oropharynx clear without exudates. Moist mucous membranes. NECK: Normal range of motion, supple without lymphadenopathy or JVD. LUNGS: Breath sounds clear to auscultation bilaterally and equal. No wheezes rales or rhonchi. HEART: Regular rate and rhythm without murmurs, rubs or gallops. ABDOMEN: Very tender to palpation left lower quadrant , with guarding. Unable to completely abdominal exam due to patient's extreme pain. : Deferred EXTREMITIES: Normal range of motion, no pitting or edema. No clubbing or cyanosis. NEUROLOGICAL: Cranial nerves II through XII grossly intact. Normal speech, normal gait. PSYCH: Normal mood, normal affect. SKIN: Warm, Dry, normal turgor, no rashes or lesions noted. (Tere Pineda) Course Vital Signs 12/17/18 12/17/18 12/17/18 16:22 19:19 20:31 Temperature 98 F Pulse Rate 101 H 93 85 Respiratory 16 16 16 Rate Blood Pressure 171/99 144/88 114/97 O2 Sat by Pulse 100 100 100 Oximetry Medical Decision Making <Tere Pineda - Last Filed: 12/17/18 19:58> <Asif Stanley - Last Filed: 12/17/18 20:43> - Medical Decision Making Patient is a 33-year-old female presenting to the ER via transfer from [facility] with concern for left ovary and torsion. Patient had sudden onset extreme left lower quadrant pain 2 hours ago. Patient has history of right ovarian cystectomy emergently. Patient denies any fever, nausea, vomiting, urinary symptoms, vaginal bleeding. Patient is 6 weeks spontaneous vaginal delivery. On exam patient has severe tenderness of the left quadrant. Patient had transvaginal ultrasound performed at [facility] which shows several large cyst on the left ovary the largest measuring 13.5 cm. There is no ultrasound findings of torsion left side. Patient also had CBC, BMP, UA, urine drug screen performed at [facility], all were within normal limits. 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 Patient's lactic acid is 1.2. Patient was given another 1 mg of Dilaudid and is resting complaints at this time. Case discussed with Dr. Stanley. (Tere Pineda) Decision making; 33-year-old female sent to our ER from [facility] because of left lower quadrant pain and ultrasound that demonstrated large ovary and large ovarian cysts. Latest blood pressure was 154/101. This be rechecked if still elevated and labetalol be used to bring the blood pressure down. The ean ent was given pain medication which worked well. The case discussed with on- call DRILL DOCTOR doctor Lisa, he'll see the patient in emergency room. Dr. Stanley Patient's blood pressures much improved. The case discussed with Dr. Gonzalez has seen the patient in emergency room. Current plan is to take the patient to the operating room for evaluation of enlarged cysts and ovary. Family reports she last ate or drank anything this morning. (Asif Stanley) - Lab Data Lab Results 12/17/18 Range/Units 17:01 Plasma Lactic Acid Manuel 1.2 (0.7-2.0) mmol/L Disposition <Tere Pineda - Last Filed: 12/17/18 19:58> Is patient prescribed a controlled substance at d/c from ED?: No <Asif Stanley - Last Filed: 12/17/18 20:43> Clinical Impression: Ovarian cystic mass Disposition: ADMITTED IP TO THIS HOSP Condition: Serious Referrals: Tommy Hameed MD [Primary Care Provider] - 1-2 days
--- NOTE | 2018-12-17 20:05 | P.HPOB ---
History of Present Illness H&P Date: 12/17/18 Chief Complaint: Pelvic pain: Ovarian mass Ezekiel is a 33-year-old female who is 6 weeks following a vaginal delivery in [facility]. She has a history of ovarian cysts after each of her ABGs and after her last delivery she apparently had a 10 or 12 cm cyst excised and then ovary removed by another physician for similar problem and complaint. She apparently knew that she had a 12 or 13 cm cyst throughout the and was being followed for it, however she did not have a follow-up appointment with her microsoft bi developer until next week. She relates that this afternoon or late this morning she began having severe pain in her abdomen that continued to grow in [facility] throughout the day. She was ultimately taken to [facility] where ultrasound was performed and revealed the above findings of 15 x 10 cm cyst and 6 x 6 cm cyst both on the left ovary. She has surgical removal of her right ovary in the past. Despite these ultrasound relating there is suspected floater ovary her symptomatology and presentation is very consistent with a an ovarian torsion. There was no or minimal free fluid in her abdomen on ultrasound. Uterus otherwise looks normal. She's had multiple obstetricians over the last several years and I think that this is her problem from a standpoint that no one is coordinating the care to allow for her to of gotten this taken care of potentially earlier than this. Cysts on the ovary do look simple and due to the fact that she is Fabiano Preston ovary will make every attempt to save the ovary, however it is entirely possible if not probable that she will lose her left ovary as well. This will make her menopausal she und erstands this risk and most likely will need hormone replacement therapy moving forward but that can be managed by her primary microsoft bi developer. Currently she has a surgical abdomen with severe pain and a mass that palpates to just under her umbilicus. She does have pain and reflex pain and guarding to almost any palpation this time. Pelvic exam was deferred until the operating room and she would not tolerate the exam. Past medical history is significant for ovarian cysts Past surgical history prior exploratory laparotomy with right salpingo- oophorectomy ALLERGIES none Social history is significant for one half pack per day tobacco condition eyes alcohol or illicit drug use Family history is noncontributory On physical exam vital signs are stable and she is currently afebrile. Heart is regular and lungs are clear. Abdomen as above. Assessment ovarian mass suspect torsion Plan expiratory laparotomy with cystectomy versus oophorectomy. Past Medical History Additional Past Medical History / Comment(s): OB history: 5 previous vaginal deliveries and one ectopic treated with methotrexate. ovarian cyst History of Any Multi-Drug Resistant Organisms: None Reported Past Surgical History: Cholecystectomy Additional Past Surgical History / Comment(s): laparoscopic drainage of bilateral ovarian cysts and reversal of ovarian torsion 2016 Past Anesthesia/Blood Transfusion Reactions: No Reported Reaction Past Psychological History: Anxiety Smoking Status: Current every day smoker Past Alcohol Use History: None Reported Past Drug Use History: None Reported - Past Family History Father Family Medical History: No Reported History Additional Family Medical History / Comment(s): grandmother diabetic Medications and Allergies Home Medications Medication Instructions Recorded Confirmed Type Acetaminophen Tab [Tylenol] 1,000 mg PO Q8HR PRN 12/17/18 12/17/18 History Allergies Allergy/AdvReac Type Severity Reaction Status Date / Time metoclopramide HCl Allergy Confusion Verified 12/17/18 16:33 [From [facility]] Exam Osteopathic Statement: *. No significant issues noted on an osteopathic structural exam other than those noted in the History and Physical/Consult. Vital Signs Temp Pulse Resp BP Pulse Ox 12/17/18 19:19 93 16 144/88 100 12/17/18 16:22 98 F 101 H 16 171/99 100 Intake and Output 12/17/18 12/17/18 12/17/18 06:59 14:59 22:59 Other: Weight 68.039 kg
[2018-12-17] MEDS ORDERED: SODIUM CHLORIDE 0.9% 1,000 ML IV ONE ×2 (21:01)
[2018-12-17] MEDS ORDERED: HYDROmorphone 1 MG/ML 1 ML SYRINGE IVP ONE (21:21)
[2018-12-17] MEDS ORDERED: fentaNYL (PF) 50 MCG/ML 2 ML AMP ONE (22:06)
[2018-12-17] MEDS ORDERED: PROPOFOL 10 MG/ML 20 ML VIAL IV ONE (22:06)
[2018-12-17] MEDS ORDERED: KETOROLAC 30 MG/ML 1 ML VIAL ONE (22:06)
[2018-12-17] MEDS ORDERED: SUCCINYLCHOLINE CHLORIDE 100 MG/5 ML SYR IV ONE (22:06)
[2018-12-17] MEDS ORDERED: ONDANSETRON 4 MG/2 ML VIAL ONE (22:06)
[2018-12-17] MEDS ORDERED: LACTATED RINGERS 1,000 ML IV ONE (22:52)
[2018-12-17] MEDS ORDERED: ONDANSETRON 4 MG/2 ML VIAL IVP PRN (23:10)
[2018-12-17] MEDS ORDERED: SIMETHICONE 80 MG CHEWABLE PO PRN (23:10)
[2018-12-17] MEDS ORDERED: HYDROmorphone PCA 10 MG/50 ML BAG IV PRN (23:12)
[2018-12-17] MEDS ORDERED: NALOXONE 0.4 MG/ML 1 ML VIAL IV PRN (23:12)
--- NOTE | 2018-12-17 23:18 | P.OP ---
Date of Procedure: 12/17/18 Preoperative Diagnosis: Ovarian mass Postoperative Diagnosis: Same: Torsed ovary: No viable ovarian tissue Procedure(s) Performed: Exploratory laparotomy with left salpingo-oophorectomy Anesthesia: TOY Surgeon: Marquis Britt Consumer Safety Inspector #1: Errol Tsai Estimated Blood Loss (ml): 20 IV fluids (ml): 1,000 Urine output (ml): 200 Pathology: other (Left ovary and tube) Condition: stable Disposition: floor Operative Findings: Grossly enlarged very heavy left ovarian and tube no viable ovarian tissue could be identified. Mass is noted to be at least 18 cm in length and 10-12 cm around. It was much heavier than what I would have normally anticipated and is likely full of clot.. Description of Procedure: Patient was taken to the operating suite where a general anesthetic was found be adequate. She was prepped and draped in the normal sterile fashion and placed in the dorsal supine position. Initially a Pfannenstiel skin incision was made and this incision was then carried through to the underlying layer of the fascia with the second knife. Fascia was then nicked in the midline and this opening was extended laterally with Santos scissors. Superior and inferior aspect of this incision were then grasped tented up and bluntly and sharply dissected off the rectus muscles. Rectus muscles were then divided the midline and blunt dissection through the peritoneum was done. This opening was then extended superiorly and inferiorly with good visualization of both bowel bladder. Ovary was then identified and using manipulation it was maneuvered up and out of the abdomen it was actually sitting high in the abdomen really almost the same level as her umbilicus we were able to bring down and bring it up through the incision and then packed the bowel out of the operative field. Dutch clamps and used to clamp the infundibular pelvic ligament on the left side tissues doubly clamped cut and tied and then doubly clamped cut and tied in the ovary was then removed. [id number] and a running 0 Vicryl suture were then used to obtain excellent hemostasis. Once this was accomplished pelvis was irrigated. No bleeding is noted across and the pedicles. Observations remainder the abdomen and pelvis were then done, no bleeding is noted and prior right salpingo- oophorectomy area is noted. Once this is completed instruments and bowel packing were removed and peritoneal layer was identified and demarcated with hemostats and then closed with 0 Vicryl suture. Fascial layer was then closed with 0 Vicryl suture. One layer of 3-0 Vicryl was placed in the deep spivey bcuticular tissues reapproximate the skin and close the space. Skin was then closed with martha. Sponge, lap, needle counts were all correct 2. Patient was then taken to the recovery room in stable and satisfactory condition.
[2018-12-18 00:40] VITALS: BMI 27.4
[2018-12-18] MEDS: LACTATED RINGERS 1,000 ML IV SCH ×2 (01:03→03:16)
[2018-12-18 07:03] LABS: Anisocytosis Slight; Basophils % (A) 0 %; Eosinophils % (A) 0 %; Hypochromasia Marked; Lymphocytes # (A) 0.9 k/uL (1.0-4.8); Lymphocytes % (A) 10 %; MCH 23.3 pg (25.0-35.0); MCHC 30.2 g/dL (31.0-37.0); MCV 77.1 fL (80.0-100.0); Mean Platelet Volume 6.6; Microcytosis Slight; Monocytes # (A) 0.2 k/uL (0-1.0); Monocytes % (A) 2 %; Neutrophils # (A) 7.7 k/uL (1.3-7.7); Neutrophils % (A) 87 %; Platelet Count 323 k/uL (150-450); RBC 4.28 m/uL (3.80-5.40); RDW 16.5 % (11.5-15.5); WBC 8.9 k/uL (3.8-10.6)
--- NOTE | 2018-12-18 08:34 | P.PN ---
Progress Note - Text Progress Note Date: 12/18/18 Doing very well this morning. Postop day 1. She is still very tired from anesthesia and will remain with a Ye catheter until she is a little bit more awake. 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 Vital signs are stable and she is afebrile. Heart regular lungs clear abdomen soft and and tender only in incision. She relates that the pain from prior to surgery is significant improved and otherwise is feeling well. All the questions are answered for her at this time we'll continue current care.
[2018-12-18] MEDS: KETOROLAC 30 MG/ML 1 ML VIAL IVP PRN ×2 (11:16→17:12)
[2018-12-18] MEDS: HYDROcodone/APAP 5-325MG 1 EACH TAB PO PRN ×2 (14:34→23:13)
[2018-12-18] MEDS: SENNOSIDES-DOCUSATE SODIUM 1 EACH TAB PO SCH (14:34)
[2018-12-19] MEDS: SENNOSIDES-DOCUSATE SODIUM 1 EACH TAB PO SCH ×2 (00:27→12:10)
[2018-12-19] MEDS: LACTATED RINGERS 1,000 ML IV SCH (00:28)
[2018-12-19] MEDS: KETOROLAC 30 MG/ML 1 ML VIAL IVP PRN (04:24)
[2018-12-19] MEDS: HYDROcodone/APAP 5-325MG 1 EACH TAB PO PRN ×2 (07:56→12:09)
[2018-12-19 08:33] VITALS: BP 111/63; PULSE 92; RESP 14; TEMP 98.1
--- NOTE | 2018-12-19 08:42 | P.PN ---
Progress Note - Text Progress Note Date: 12/19/18 Ezekiel is seen and evaluated postop day 2. She is involuting, voiding and tolerating her diet. I'll signs are stable and afebrile. She is passing flatus. She would like to go home later today. We'll reassess later in the afternoon. On physical exam her heart is currently regular, lungs are clear, extremities without pain. Abdomen soft with bowel sounds noted. Incision is clean dry and intact. Likely will need to wait and remove martha and a few days will plan to follow up with her on Saturday for that. Assessment postop day 2. Plan continue current care with likely discharge to home later today
--- NOTE | 2018-12-19 12:58 | P.DS ---
Providers Date of admission: 12/18/18 11:23 Expected date of discharge: 12/19/18 Attending physician: Marquis Britt Primary care physician: Tommy Hameed Hospital Course: Ezekiel is doing very well this afternoon postop day 2. She is requesting discharge home. Vital signs are stable and she is afebrile. Pathology report is pending. She voices no complaints and no changes since this morning. We'll plan her to discharge her to home. Murray were removed this incision appears to be healing very well Steri-Strips with Mastisol are placed. She is aware that she will need follow-up care. She hasn't plan with her primary obstet rician early next week and will plan to see me in 2 weeks. I did not initiate her hormone therapy as I will leave it up to her waste reclaimer to make the choice on what he would like her to be on. All other questions are answered for her at this time and she is stable for discharge at this time. Patient Condition at Discharge: Good Plan - Discharge Summary New Discharge Prescriptions: New Ibuprofen [Motrin] 600 mg PO Q6HR PRN #30 tab PRN Reason: Pain HYDROcodone/APAP 5-325MG [[place] 5-325] 1 tab PO Q4HR PRN #30 tab PRN Reason: Pain No Action Acetaminophen Tab [Tylenol] 1,000 mg PO Q8HR PRN PRN Reason: Pain Discharge Medication List Acetaminophen Tab [Tylenol] 1,000 mg PO Q8HR PRN 12/17/18 [History] HYDROcodone/APAP 5-325MG [[place] 5-325] 1 tab PO Q4HR PRN #30 tab 12/19/18 [Rx] Ibuprofen [Motrin] 600 mg PO Q6HR PRN #30 tab 12/19/18 [Rx] Follow up Appointment(s)/Referral(s): Tommy Hameed MD [Primary Care Provider] - 1-2 days Marquis Britt DO [Doctor of Osteopathic Medicine] - 2 Weeks Activity/Diet/Wound Care/Special Instructions: No heavy lifting, limit stairs and driving, and pelvic rest. If any high temperatures, heavy bleeding, or severe pain call myself or her primary obstetri sandee. Discharge instructions were thoroughly reviewed and prescriptions are for her to her pharmacy Discharge Disposition: HOME SELF-CARE
== END 2018-12-19 13:00 | disposition home or self-care (01) | DRG 743 ==
LOC: EC 16:19 → 4FBP 20:43 → EC 21:14 → OBSVTOIN 12-18 11:23
PROVIDERS: ADMIT Obstetrics & Gynecology; ATTEND Obstetrics & Gynecology
PROC: 0UT10ZZ Resection of Left Ovary, Open Approach (ICD-10-PCS; 2018-12-17)
PROC: 0UT60ZZ Resection of Left Fallopian Tube, Open Approach (ICD-10-PCS; principal; 2018-12-17 20:40)
DX: N83.202 Unspecified ovarian cyst, left side (principal); F17.200 Nicotine dependence, unspecified, uncomplicated; F41.9 Anxiety disorder, unspecified; Z90.49 Acquired absence of other specified parts of digestive tract; Z88.8 Allergy status to other drugs, medicaments and biological substances; Z83.3 Family history of diabetes mellitus
CPT/HCPCS: 36415; 83605; 84703; 85025; 86850; 86900; 86901; 88307; 96361; 96365; 96375; 99285